=== PATIENT | male | born 1945 ===

== ENCOUNTER 2022-11-29 06:00 | Day surgery (SDC) | payer OTHER ==
[~2022-11-29] VITALS: Ht 157.5 cm; Wt 72.6 kg
[~2022-11-29 06:00] MED LIST: CHILDREN'S ASPI81 MG PO; COZAAR50 MG PO; GLIPIZIDE XL5 MG PO; HYDROCHLOROTHIA25 MG PO; JANUMET XR 50-1 EAC1 PO
[2022-11-29] MEDS ORDERED: PERCOCET 5-3251 EACH PO (12:00)
== END 2022-11-29 13:45 | disposition home or self-care (01) ==
LOC: CIR.AMB 06:00
PROVIDERS: ATTEND Surgery
DX: N52.01 Erectile dysfunction due to arterial insufficiency (principal); N48.6 Induration penis plastica; Z20.822 Contact with and (suspected) exposure to COVID-19; I10 Essential (primary) hypertension
CPT/HCPCS: 54405; 54360; C1813